=== PATIENT | female | born 1995 | race Caucasian/White ===

== ENCOUNTER 2016-09-22 20:15 | Emergency (ER) | payer OTHER ==
[2016-09-22 20:26] VITALS: BP 134/92
--- NOTE | 2016-09-22 20:35 | ER Document Report ---
ED General - General Chief Complaint: Headache Stated Complaint: BACK PAIN,HEADACHE Time Seen by Provider: 09/22/16 20:21 Notes: The patient is a 20-year-old female, delivered vaginally 2 days ago, PMHx chronic L4-L5 disc protrusion, migraines, presents with chronic lower back pain and left upper neck pain that started after she gave and her epidural was removed. She is trying ibuprofen, Lidoderm patches and took a Percocet 10 without much relief of her symptoms. She denies change in bowel or bladder, saddle anesthesia, difficulty walking, fevers, headache TRAVEL OUTSIDE OF THE [place] IN LAST 30 DAYS: No - Related Data Allergies/Adverse Reactions: No Known Allergies Allergy (Unverified 12/11/15 21:49) Past Medical History - General Information source: Patient - Social History Smoking Status: Never Smoker Family History: Reviewed & Not Pertinent Past Surgical History: Reports: Hx Tonsillectomy - Immunizations Immunizations up to date: Yes Hx Diphtheria, Pertussis, Tetanus Vaccination: Yes Review of Systems - Review of Systems Notes: REVIEW OF SYSTEMS: CONSTITUTIONAL: -fevers, -chills EENT: -eye pain, -difficulty swallowing, -nasal congestion CARDIOVASCULAR:-chest pain, -syncope. RESPIRATORY: -cough, -SOB GASTROINTESTINAL: -abdominal pain, - nausea, -vomiting, -diarrhea GENITOURINARY: -dysuria, -hematuria MUSCULOSKELETAL: +back pain, +neck pain SKIN: -rash or skin lesions. HEMATOLOGIC: -easy bruising or bleeding. LYMPHATIC: -swollen, enlarged glands. NEUROLOGICAL: -altered mental status or loss of consciousness, -headache, - neurologic symptoms PSYCHIATRIC: -anxiety, -depression. ALL OTHER SYSTEMS REVIEWED AND NEGATIVE. Physical Exam - Vital signs Vitals: Temp Pulse Resp BP Pulse Ox 98.6 F 83 18 134/92 H 97 09/22/16 20:25 09/22/16 20:25 09/22/16 20:25 09/22/16 20:25 09/22/16 20:25 - Notes Notes: PHYSICAL EXAMINATION: GENERAL: Well-appearing, well-nourished and in no acute distress. Texting on arrival. HEAD: Atraumatic, normocephalic. EYES: Pupils equal round and reactive to light, extraocular movements intact, sclera anicteric, conjunctiva are normal. ENT: nares patent, oropharynx clear without exudates. Moist mucous membranes. NECK: Mild tenderness over left upper trapezius. Normal range of motion, supple without lymphadenopathy LUNGS: Breath sounds clear to auscultation bilaterally and equal. No wheezes rales or rhonchi. HEART: Regular rate and rhythm without murmurs ABDOMEN: Soft, nontender, normoactive bowel sounds. No guarding, no rebound. No masses appreciated. EXTREMITIES: Normal range of motion, no pitting or edema. No cyanosis. Non- tender midline or paraspinal tenderness. NEUROLOGICAL: Cranial nerves grossly intact. Normal speech, normal gait. Normal sensory, motor, and reflex exams. PSYCH: Normal mood, normal affect. SKIN: Warm, Dry, normal turgor, no rashes or lesions noted. Course - Re-evaluation Re-evalutation: Patient has no red flag signs for her low back pain. Do not suspect epidural abscess or hematoma from prior epidural. She also has mild neck strain. Suspect her symptoms are from her delivery 2 days ago. Spoke to her about no indication for narcotics at this time especially with a 2-day-old at home and she is breast-feeding. She has a Lidoderm patch to take at home. Will discharge her home with follow-up with primary care physician. - Vital Signs Vital signs: Temp Pulse Resp BP Pulse Ox 98.6 F 83 18 134/92 H 97 09/22/16 20:25 09/22/16 20:25 09/22/16 20:25 09/22/16 20:25 09/22/16 20:25 Discharge - Discharge Clinical Impression: Back pain Qualifiers: Back pain location: low back pain Chronicity: acute Back pain laterality: bilateral Sciatica presence: without sciatica Qualified Code(s): M54.5 - Low back pain Strain of neck Qualifiers: Encounter type: initial encounter Qualified Code(s): S16.1XXA - Strain of muscle, fascia and tendon at neck level, initial encounter Condition: Good Disposition: HOME, SELF-CARE Additional Instructions: The only safe medication to take while breast-feeding and with a new baby are Tylenol, Motrin and using a Lidoderm patch. Follow-up with your primary care physician for referral to physical therapy to help prevent this from becoming a chronic issue. LOW BACK PAIN: Three out of every four people will have an episode of disabling back pain during their lifetime. Most commonly the pain is due to straining of the muscles and ligaments in the low back. Usual treatment includes: (1) Rest on a firm surface. Avoid lying on your stomach. (2) Ice pack the painful area. After a few days, gentle heat may be used intermittently to relax the area, or ice packs can be continued. (3) Medication may be needed -- muscle relaxers and antiinflammatory medicines are commonly used. (4) As the back improves, exercises are prescribed to strengthen the back and abdominal muscles. Your doctor will advise you on the proper care for your back at each stage in your recovery. You may be better in a few days -- or healing may take several weeks. If new symptoms of a "herniated disc" (radiation of pain, numbness, or tingling down the back of the leg or weakness in the leg) occur, you should be re-examined. Further testing may be necessary. ICE PACKS: Apply ice packs frequently against the painful area. Many different schedules are recommended, such as "20 minutes on, 20 minutes off" or "one hour ice, two hours rest." If you need to work, you may need to go longer between ice treatments. You should plan to have the area ice packed AT LEAST one fourth of the time. The ice should be applied over the wrap, tape, or splint, or over a layer of cloth -- not directly against the skin. Some ice bags have a built-in cloth and can be put directly on the skin. WARM PACKS: After approximately two days, apply gentle heat (such as a heating pad or hot water bottle) for about 20 to 30 minutes about every two hours -- at least four times daily. Warmth and elevation will help you make a more rapid recovery , and will ease the pain considerably. Do not use HOT heat, and never apply heat for longer than 30 minutes. The continuous heat can invisibly damage skin and muscles -- even when no burn is seen on the surface. Damaged muscles can make you MORE sore. FOLLOW-UP CARE: If you have been referred to a physician for follow-up care, call the physician s office for an appointment as you were instructed or within the next two days. If you experience worsening or a significant change in your symptoms, notify the physician immediately or return to the Emergency Department at any time for re-evaluation.
== END 2016-09-22 21:05 | disposition home or self-care (01) ==
LOC: ER 20:15
DX: O9A.23 Injury, poisoning and certain other consequences of external causes complicating the puerperium (principal); S16.1XXA Strain of muscle, fascia and tendon at neck level, initial encounter; M54.2 Cervicalgia; X58.XXXA Exposure to other specified factors, initial encounter; O90.89 Other complications of the puerperium, not elsewhere classified; M54.5 Low back pain
CPT/HCPCS: 99283

== ENCOUNTER 2019-09-26 10:43 | Observation (INO) | payer MEDICAID ==
[2019-09-26] MEDS ORDERED: NORMAL SALINE 1000 ML 1,630 ML IV ONE (11:01)
[2019-09-26] MEDS ORDERED: HYDROCODONE/ACETAMINOPHEN 5-325 MG TABLET PO ONE (11:02)
[2019-09-26] MEDS ORDERED: ACETAMINOPHEN 325 MG TABLET PO ONE (11:02)
[2019-09-26] MEDS ORDERED: KETOROLAC TROMETHAMINE INJ/PF 30 MG/1 ML SDV IV ONE (11:02)
[2019-09-26 11:28] LABS: ABSOLUTE LYMPHOCYTES (AUTO) 1.4 10^3/uL (0.5-4.7); ABSOLUTE MONOCYTES (AUTO) 2.1 10^3/uL (0.1-1.4); ABSOLUTE NEUT (AUTO) 15.8 10^3/uL (1.7-8.2); BASOPHILS % (AUTO) 0.1 % (0-2); EOSINOPHILS % (AUTO) 0.2 % (0-6); HEMATOCRIT 38.9 % (36.0-47.0); HEMOGLOBIN 13.3 g/dL (12.0-15.5); LYMPHOCYTES % (AUTO) 7.2 % (13-45); MEAN CORPUSCULAR HEMOGLOBIN 33.5 pg (27.0-33.4); MEAN CORPUSCULAR HGB CONC 34.3 g/dL (32.0-36.0); MEAN CORPUSCULAR VOLUME 98 fl (80-97); MONOCYTES % (AUTO) 10.8 % (3-13); PLATELET COUNT 250 10^3/uL (150-450); RED BLOOD COUNT 3.98 10^6/uL (3.72-5.28); RED CELL DISTRIBUTION WIDTH 12.4 % (11.5-14.0); SEGMENTED NEUTROPHILS % (AUTO) 81.7 % (42-78); TOTAL CELLS COUNTED % (AUTO) 100 %; WHITE BLOOD COUNT 19.3 10^3/uL (4.0-10.5)
[2019-09-26 11:31] LABS: T.VAGINALIS (WET MOUNT) NO TRICHOMONAS SEEN; YEAST (WET MOUNT) NO YEAST SEEN
[2019-09-26 11:32] LABS: BACTERIA (WET MOUNT) 3+ BACTERIA SEEN; EPITHELIALS (WET MOUNT) 3+ EPITHELIALS SEEN; RBCS (WET MOUNT) 1+ RBCS SEEN; WBCS (WET MOUNT) 2+ WBCS SEEN
[2019-09-26 11:36] LABS: PROTHROMBIN TIME 14.2 SEC (11.4-15.4)
[2019-09-26 11:38] LABS: VENOUS BLOOD BASE EXCESS 0.3 mmol/L; VENOUS BLOOD HCO3 24.3 mmol/L (20-32); VENOUS BLOOD PCO2 37.6 mmHg (35-63); VENOUS BLOOD PH 7.43 (7.30-7.42)
[2019-09-26 11:49] LABS: ALKALINE PHOSPHATASE 52 U/L (38-126); ANION GAP 6 (5-19); ASPARTATE AMINO TRANSFERASE 19 U/L (14-36); BILIRUBIN,TOTAL 0.4 mg/dL (0.2-1.3); BLOOD UREA NITROGEN 15 mg/dL (7-20); CALCIUM 9.3 mg/dL (8.4-10.2); CARBON DIOXIDE 26 mmol/L (22-30); CHLORIDE 103 mmol/L (98-107); GLUCOSE 105 mg/dL (75-110); POTASSIUM 3.7 mmol/L (3.6-5.0); TOTAL PROTEIN 6.8 g/dL (6.3-8.2)
--- NOTE | 2019-09-26 11:57 | RADIOLOGY REPORT (SQ) ---
EXAM DESCRIPTION: CHEST SINGLE VIEW IMAGES COMPLETED DATE/TIME: 09/26/2019 11:45 am REASON FOR STUDY: tachycardia, flank pain COMPARISON: None. EXAM PARAMETERS: NUMBER OF VIEWS: One view. TECHNIQUE: Single frontal radiographic view of the chest acquired. RADIATION DOSE: NA LIMITATIONS: None. FINDINGS: LUNGS AND PLEURA: No opacities, masses or pneumothorax. No pleural effusion. MEDIASTINUM AND HILAR STRUCTURES: No masses. Contour normal. HEART AND VASCULAR STRUCTURES: Heart normal in size. Normal vasculature. BONES: No acute findings. HARDWARE: None in the chest. OTHER: No other significant finding. IMPRESSION: NO ACUTE RADIOGRAPHIC FINDING IN THE CHEST. TECHNICAL DOCUMENTATION: JOB ID: [id number] 2010 [employer]- All Rights Reserved Reading location - IP/workstation name: [email or web address]
[2019-09-26] MEDS ORDERED: CEFTRIAXONE 1 GM/D5W RTU 1 GM/50 ML RTUPB IV ONE (12:00)
[2019-09-26 12:03] LABS: APPEARANCE,URINE SLIGHTLY-CLOUDY; BILIRUBIN,URINE NEGATIVE (NEGATIVE); COLOR,URINE YELLOW; GLUCOSE, URINE NEGATIVE (NEGATIVE); KETONES,URINE TRACE mg/dL (NEGATIVE); PROTEIN,URINE 30 mg/dL (NEGATIVE); URINE SPECIFIC GRAVITY 1.019; UROBILINOGEN,URINE NEGATIVE mg/dL (<2.0)
[2019-09-26 12:55] LABS: CHLAM PCR NOT DETECTED (NOT DETECT)
[2019-09-26] MEDS ORDERED: PROCHLORPERAZINE EDISYLATE INJ 10 MG/2 ML VIAL IV ONE (13:32)
[2019-09-26] MEDS ORDERED: DIPHENHYDRAMINE HCL 50 MG/ML VIAL IV ONE (13:32)
--- NOTE | 2019-09-26 14:03 | ER Document Report ---
ED GI/ - General Chief Complaint: Vaginal Discharge Stated Complaint: MUSCLE SPASMS/VAGINAL DISCHARGE Mode of Arrival: Ambulatory Information source: Patient Notes: Patient presents complaining of low back pain for the past 3 days with dysuria. Patient also complains of vaginal discharge that started yesterday with a rash to the perineum. Patient denies any fever nausea vomiting or diarrhea. Patient just traveled here 3 days ago from [place]. TRAVEL OUTSIDE OF THE [place] IN LAST 30 DAYS: No - HPI Patient complains to provider of: Dysuria, Flank pain. No: Vomiting Onset: Other - 3 days Timing/Duration: Worse Quality of pain: Achy Pain Level: 5 Location: Left flank, Right flank Menstrual period history: denies: Sexual history: Active Associated symptoms: Dysuria, Vaginal discharge. denies: Fever, Nausea, Syncope, Urinary hesitancy, Urinary frequency, Urinary retention, Vomiting Exacerbated by: Denies Relieved by: Denies Similar symptoms previously: No Recently seen / treated by doctor: No - Related Data Allergies/Adverse Reactions: No Known Allergies Allergy (Unverified 12/11/15 21:49) Past Medical History - General Information source: Patient - Social History Smoking Status: Current Every Day Smoker Chew tobacco use (# tins/day): No Frequency of alcohol use: None Occupation: None Family History: Reviewed & Not Pertinent Patient has homicidal ideation: No Psychiatric Medical History: Reports: Hx Anxiety Past Surgical History: Reports: Hx Tonsillectomy - Immunizations Immunizations up to date: Yes Hx Diphtheria, Pertussis, Tetanus Vaccination: Yes Review of Systems - Review of Systems Constitutional: No symptoms reported. denies: Fever EENT: No symptoms reported Cardiovascular: No symptoms reported. denies: Chest pain Respiratory: No symptoms reported. denies: Short of breath Gastrointestinal: No symptoms reported. denies: Abdominal pain, Nausea, Vomiting Genitourinary: Dysuria, Flank pain Female Genitourinary: Vaginal discharge, Other - Rash to perineum Musculoskeletal: No symptoms reported Skin: Rash - Perineum Hematologic/Lymphatic: No symptoms reported Neurological/Psychological: Headaches. denies: Confusion, Weakness Physical Exam - Vital signs Vitals: Temp Pulse Resp BP Pulse Ox 98.5 F 137 H 16 99/52 L 99 09/26/19 10:47 09/26/19 10:47 09/26/19 10:47 09/26/19 10:47 09/26/19 10:47 - General General appearance: Alert In distress: Moderate - HEENT Head: Normocephalic, Atraumatic Eyes: Normal Nasal: Normal Mouth/Lips: Normal Mucous membranes: Normal Neck: Normal, Supple. No: Lymphadenopathy - Respiratory Respiratory status: No respiratory distress Chest status: Nontender Breath sounds: Normal. No: Rales, Rhonchi, Stridor, Wheezing Chest palpation: Normal - Cardiovascular Rhythm: Tachycardia Heart sounds: S1 appreciated, S2 appreciated - Abdominal Inspection: Normal Distension: No distension Bowel sounds: Normal Tenderness: Nontender - Genitourinary External exam: Normal Speculum exam: Cervix closed, Vaginal discharge Vaginal bleeding: None Bimanuel exam: Normal. No: Cervical motion tender, Adnexal tenderness - Back Back: CVA tenderness - bilat - Extremities General upper extremity: Normal inspection, Normal strength General lower extremity: Normal inspection, Normal strength - Neurological Neuro grossly intact: Yes Cognition: Normal Mcdaniel Coma Scale Eye Opening: Spontaneous Mcdaniel Coma Scale Verbal: Oriented Kim Coma Scale Motor: Obeys Commands Kim Coma Scale Total: 15 - Psychological Associated symptoms: Normal affect, Normal mood - Skin Skin Temperature: Warm Skin Moisture: Dry Skin Color: Other - Patient with erythematous papulopustular rash to perineum. Rash looks consistent with folliculitis Course - Re-evaluation Re-evalutation: 09/26/19 10:59 Patient's initial heart rate has started to improve, patient complains of headache and continued low back pain. 09/26/19 13:59 Patient tachycardia improved although patient does continue with hypotension. Review of patient's previous visits demonstrates blood pressure typically ranges in the 120/80 range. Consulted with hospitalist regarding need for admission for concern about sepsis due to UTI, Dr. Villalpando agrees to admit patient to medical floor. Patient is agreeable with plan for admission at this time. - Vital Signs Vital signs: Temp Pulse Resp BP Pulse Ox 98.5 F 137 H 14 95/54 L 96 09/26/19 10:47 09/26/19 10:47 09/26/19 13:03 09/26/19 13:03 09/26/19 13:03 - Laboratory Result Diagrams: 09/26/19 11:04 09/26/19 11:04 Laboratory results interpreted by me: 09/26/19 09/26/1920 11:04 11:04 11:04 WBC 19.3 H MCV 98 H MCH 33.5 H Lymph % (Auto) 7.2 L Absolute Neuts (auto) 15.8 H Absolute Monos (auto) 2.1 H Seg Neutrophils % 81.7 H VBG pH 7.43 H Sodium 134.8 L Lactic Acid Urine Protein Urine Ketones Urine Blood Leukocyte Esterase Rfl 09/26/19 09/26/19 11:04 14:08 WBC MCV MCH Lymph % (Auto) Absolute Neuts (auto) Absolute Monos (auto) Seg Neutrophils % VBG pH Sodium Lactic Acid < 0.5 L Urine Protein 30 H Urine Ketones TRACE H Urine Blood LARGE H Leukocyte Esterase Rfl MODERATE H 09/26/19 15:45 Labs- Entire Visit 09/26/19 09/26/19 09/26/19 11:04 11:04 11:04 WBC 19.3 H RBC 3.98 Hgb 13.3 Hct 38.9 MCV 98 H MCH 33.5 H MCHC 34.3 RDW 12.4 Plt Count 250 Lymph % (Auto) 7.2 L [place] % (Auto) 10.8 Eos % (Auto) 0.2 Baso % (Auto) 0.1 Absolute Neuts (auto) 15.8 H Absolute Lymphs (auto) 1.4 Absolute Monos (auto) 2.1 H Absolute Eos (auto) 0.0 Absolute Basos (auto) 0.0 Seg Neutrophils % 81.7 H PT 14.2 INR 1.10 VBG pH VBG pCO2 VBG HCO3 VBG Base Excess Sodium 134.8 L Potassium 3.7 Chloride 103 Carbon Dioxide 26 Anion Gap 6 BUN 15 Creatinine 0.79 Est GFR ( Amer) > 60 Est GFR (MDRD) Non-Af > 60 Glucose 105 POC Glucose Lactic Acid Calcium 9.3 Total Bilirubin 0.4 Direct Bilirubin 0.0 Neonat Total Bilirubin Not Reportable Neonat Direct Bilirubin Not Reportable Neonat Indirect Bili Not Reportable AST 19 ALT 9 Alkaline Phosphatase 52 Total Protein 6.8 Albumin 4.0 Serum HCG, Qual Urine Color Urine Appearance Urine pH Ur Specific [place] Urine Protein Urine Glucose (UA) Urine Ketones Urine Blood Urine Nitrite (Reflex) Urine Bilirubin Urine Urobilinogen Leukocyte Esterase Rfl Urine RBC (Auto) Urine Bacteria (Auto) Urine WBC (Reflex) Squamous Epi Cells Auto Urine Mucus (Auto) Urine Ascorbic Acid Urine HCG, Qual Epi Cells (Wet Prep) Bacteria (Wet Prep) Trichomonas (Wet Prep) Vaginal WBC Vaginal RBC Vaginal Yeast Chlamydia DNA (PCR) N.gonorrhoeae DNA (PCR) SARS-CoV-2 (PCR) 09/26/19 09/26/19 09/26/19 11:04 11:04 11:04 WBC RBC Hgb Hct MCV MCH MCHC RDW Plt Count Lymph % (Auto) [place] % (Auto) Eos % (Auto) Baso % (Auto) Absolute Neuts (auto) Absolute Lymphs (auto) Absolute Monos (auto) Absolute Eos (auto) Absolute Basos (auto) Seg Neutrophils % PT INR VBG pH 7.43 H VBG pCO2 37.6 VBG HCO3 24.3 VBG Base Excess 0.3 Sodium Potassium Chloride Carbon Dioxide Anion Gap BUN Creatinine Est GFR ( Amer) Est GFR (MDRD) Non-Af Glucose POC Glucose Lactic Acid 1.3 Calcium Total Bilirubin Direct Bilirubin Neonat Total Bilirubin Neonat Direct Bilirubin Neonat Indirect Bili AST ALT Alkaline Phosphatase Total Protein Albumin Serum HCG, Qual Urine Color Urine Appearance Urine pH Ur Specific [place] Urine Protein Urine Glucose (UA) Urine Ketones Urine Blood Urine Nitrite (Reflex) Urine Bilirubin Urine Urobilinogen Leukocyte Esterase Rfl Urine RBC (Auto) Urine Bacteria (Auto) Urine WBC (Reflex) Squamous Epi Cells Auto Urine Mucus (Auto) Urine Ascorbic Acid Urine HCG, Qual Epi Cells (Wet Prep) 3+ EPITHELIALS SEEN Bacteria (Wet Prep) 3+ BACTERIA SEEN Trichomonas (Wet Prep) NO TRICHOMONAS SEEN Vaginal WBC 2+ WBCS SEEN Vaginal RBC 1+ RBCS SEEN Vaginal Yeast NO YEAST SEEN Chlamydia DNA (PCR) N.gonorrhoeae DNA (PCR) SARS-CoV-2 (PCR) 09/26/19 09/26/19 09/26/19 11:04 11:04 11:04 WBC RBC Hgb Hct MCV MCH MCHC RDW Plt Count Lymph % (Auto) [place] % (Auto) Eos % (Auto) Baso % (Auto) Absolute Neuts (auto) Absolute Lymphs (auto) Absolute Monos (auto) Absolute Eos (auto) Absolute Basos (auto) Seg Neutrophils % PT INR VBG pH VBG pCO2 VBG HCO3 VBG Base Excess Sodium Potassium Chloride Carbon Dioxide Anion Gap BUN Creatinine Est GFR ( Amer) Est GFR (MDRD) Non-Af Glucose POC Glucose Lactic Acid Calcium Total Bilirubin Direct Bilirubin Neonat Total Bilirubin Neonat Direct Bilirubin Neonat Indirect Bili AST ALT Alkaline Phosphatase Total Protein Albumin Serum HCG, Qual NEGATIVE Urine Color YELLOW Urine Appearance SLIGHTLY-CLOUDY Urine pH 5.0 Ur Specific [place] 1.019 Urine Protein 30 H Urine Glucose (UA) NEGATIVE Urine Ketones TRACE H Urine Blood LARGE H Urine Nitrite (Reflex) NEGATIVE Urine Bilirubin NEGATIVE Urine Urobilinogen NEGATIVE Leukocyte Esterase Rfl MODERATE H Urine RBC (Auto) 118 Urine Bacteria (Auto) TRACE Urine WBC (Reflex) 24 Squamous Epi Cells Auto 2 Urine Mucus (Auto) FEW Urine Ascorbic Acid NEGATIVE Urine HCG, Qual Epi Cells (Wet Prep) Bacteria (Wet Prep) Trichomonas (Wet Prep) Vaginal WBC Vaginal RBC Vaginal Yeast Chlamydia DNA (PCR) NOT DETECTED N.gonorrhoeae DNA (PCR) NOT DETECTED SARS-CoV-2 (PCR) 09/26/19 09/26/19 09/26/19 11:04 11:34 14:08 WBC RBC Hgb Hct MCV MCH MCHC RDW Plt Count Lymph % (Auto) [place] % (Auto) Eos % (Auto) Baso % (Auto) Absolute Neuts (auto) Absolute Lymphs (auto) Absolute Monos (auto) Absolute Eos (auto) Absolute Basos (auto) Seg Neutrophils % PT INR VBG pH VBG pCO2 VBG HCO3 VBG Base Excess Sodium Potassium Chloride Carbon Dioxide Anion Gap BUN Creatinine Est GFR ( Amer) Est GFR (MDRD) Non-Af Glucose POC Glucose 108 Lactic Acid < 0.5 L Calcium Total Bilirubin Direct Bilirubin Neonat Total Bilirubin Neonat Direct Bilirubin Neonat Indirect Bili AST ALT Alkaline Phosphatase Total Protein Albumin Serum HCG, Qual Urine Color Urine Appearance Urine pH Ur Specific [place] Urine Protein Urine Glucose (UA) Urine Ketones Urine Blood Urine Nitrite (Reflex) Urine Bilirubin Urine Urobilinogen Leukocyte Esterase Rfl Urine RBC (Auto) Urine Bacteria (Auto) Urine WBC (Reflex) Squamous Epi Cells Auto Urine Mucus (Auto) Urine Ascorbic Acid Urine HCG, Qual NEGATIVE Epi Cells (Wet Prep) Bacteria (Wet Prep) Trichomonas (Wet Prep) Vaginal WBC Vaginal RBC Vaginal Yeast Chlamydia DNA (PCR) N.gonorrhoeae DNA (PCR) SARS-CoV-2 (PCR) 09/26/19 14:08 WBC RBC Hgb Hct MCV MCH MCHC RDW Plt Count Lymph % (Auto) [place] % (Auto) Eos % (Auto) Baso % (Auto) Absolute Neuts (auto) Absolute Lymphs (auto) Absolute Monos (auto) Absolute Eos (auto) Absolute Basos (auto) Seg Neutrophils % PT INR VBG pH VBG pCO2 VBG HCO3 VBG Base Excess Sodium Potassium Chloride Carbon Dioxide Anion Gap BUN Creatinine Est GFR ( Amer) Est GFR (MDRD) Non-Af Glucose POC Glucose Lactic Acid Calcium Total Bilirubin Direct Bilirubin Neonat Total Bilirubin Neonat Direct Bilirubin Neonat Indirect Bili AST ALT Alkaline Phosphatase Total Protein Albumin Serum HCG, Qual Urine Color Urine Appearance Urine pH Ur Specific [place] Urine Protein Urine Glucose (UA) Urine Ketones Urine Blood Urine Nitrite (Reflex) Urine Bilirubin Urine Urobilinogen Leukocyte Esterase Rfl Urine RBC (Auto) Urine Bacteria (Auto) Urine WBC (Reflex) Squamous Epi Cells Auto Urine Mucus (Auto) Urine Ascorbic Acid Urine HCG, Qual Epi Cells (Wet Prep) Bacteria (Wet Prep) Trichomonas (Wet Prep) Vaginal WBC Vaginal RBC Vaginal Yeast Chlamydia DNA (PCR) N.gonorrhoeae DNA (PCR) SARS-CoV-2 (PCR) NEGATIVE Discharge - Discharge Clinical Impression: Pyelonephritis, Folliculitis Hypotension Qualifiers: Hypotension type: unspecified hypotension type Qualified Code(s): I95.9 - Hypotension, unspecified Condition: Fair Disposition: ADMITTED INPATIENT Admitting Provider: Kwasi (Hospitalist) Unit Admitted: Medical Floor
[2019-09-26] MEDS ORDERED: IPRATROPIUM/ALBUTEROL 0.5-2.5 MG/3 ML AMPUL NEB PRN (14:44)
[2019-09-26] MEDS ORDERED: ZOLPIDEM TARTRATE 5 MG TABLET PO PRN (14:44)
[2019-09-26] MEDS ORDERED: ACETAMINOPHEN 325 MG TABLET PO PRN (14:44)
[2019-09-26] MEDS ORDERED: MAGNESIUM HYDROXIDE SUSP 30 ML UDCUP PO PRN (14:44)
--- NOTE | 2019-09-26 16:30 | RADIOLOGY REPORT (SQ) ---
EXAM DESCRIPTION: CT ABD/PELVIS NO ORAL OR IV IMAGES COMPLETED DATE/TIME: 09/26/2019 4:09 pm REASON FOR STUDY: Sepsis, Pyelonephritis? COMPARISON: None. TECHNIQUE: CT scan of the abdomen and pelvis performed without intravenous or oral contrast. Images reviewed with lung, soft tissue, and bone windows. Reconstructed coronal and sagittal MPR images revi ewed. All images stored on PACS. All CT scanners at this facility use dose modulation, iterative reconstruction, and/or weight based d osing when appropriate to reduce radiation dose to as low as reasonably achievable (ALARA). [facility]: Dose Right [facility]: CareDose [facility]: Dose Right [facility]: Teradose 4D [facility]: Smart Porter + Sail RADIATION DOSE: CT Rad equipment meets quality standard of care and radiation dose reduction techniq ues were employed. CTDIvol: 4.8 mGy. DLP: 246 mGy-cm.mGy. LIMITATIONS: None. FINDINGS: LOWER CHEST: No significant findings. No nodules or infiltrates. NON-CONTRASTED LIVER, SPLEEN, ADRENALS: Evaluation limited by lack of IV contrast. No identified sign ificant masses. PANCREAS: No masses. No peripancreatic inflammatory changes. GALLBLADDER: No identified stones by CT criteria. No inflammatory changes to suggest cholecystitis. RIGHT KIDNEY AND URETER: No suspicious masses. Assessment limited by lack of IV contrast. Right eli al pelvis calculus, 10 mm in length, 1,000 Hounsfield units in density. No right-sided ureteral ston es. No hydronephrosis or hydroureter. LEFT KIDNEY AND URETER: Left pelvic kidney, best shown on coronal images 16-22, over the midline sac ral promontory. No suspicious masses. Assessment limited by lack of IV contrast. No significant ca lcifications. No hydronephrosis or hydroureter. AORTA AND RETROPERITONEUM: No aneurysm. No retroperitoneal masses or adenopathy. BOWEL AND PERITONEAL CAVITY: No obvious masses or inflammatory changes. No free fluid. APPENDIX: Normal. PELVIS, BLADDER, AND ABDOMINAL WALL:No abnormal masses. No free fluid. Bladder normal. BONES: No significant findings. OTHER: No other significant finding. IMPRESSION: 10 mm right renal pelvis intrarenal nonobstructive stone. 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
[2019-09-26] MEDS: NORMAL SALINE 1000 ML 1,000 ML IV PRN (16:54)
--- NOTE | 2019-09-26 17:58 | PDOC H&P ---
History of Present Illness Admission Date/PCP: 09/26/19 14:35 Patient complains of: Excruciating back pain associated with vaginal discharge and rash for 3 days. Denies dysuria frequency History of Present Illness: PETRA PHELAN is a 23 year old female Patient presents emergency room complains of vaginal discharge associated with back pain. She also said she had a rash. She denies any fever. She denies any nausea vomiting or dysuria. She is sexually active. She just moved here from [place] and so because of a fever it COVID 19 test was done which is negative.She had a vaginal exam done by the ED physician and gonorrhea was found to be negative as well as chlamydia. CT scan of the abdomen shows a nonobstructive stone which patient is aware of but no clear-cut evidence of pyelonephritis. Urinalysis does show large amount of blood with moderate leukocyte esterase and 24 WBCs slightly cloudy appearing urine. She was referred for admission for an acute infection possibly STD although at this point there is no clear-cut indication of that Past Medical History Medical History: None Past Surgical History Past Surgical History: Reports: Tonsillectomy Social History Information Source: Patient Smoking Status: Current Every Day Smoker Electronic Cigarette use?: No - Advance Directive Resuscitation Status: Full Code Family History Family History: Reviewed & Not Pertinent Parental Family History Reviewed: Yes Children Family History Reviewed: NA Sibling(s) Family History Reviewed.: NA Medication/Allergy Home Medications: Butalb/Acetaminophen/Caffeine [Fioricet (50-325-40 mg) Tablet] 1 tab PO Q4HP PRN #30 tab 12/11/15 Allergies/Adverse Reactions: No Known Allergies Allergy (Unverified 12/11/15 21:49) Review of Systems All systems: reviewed and no additional remarkable complaints except as stated Cardiovascular: ABSENT: chest pain, orthropnea, palpitations Respiratory: ABSENT: cough Gastrointestinal: PRESENT: abdominal pain Physical Exam Vital Signs: Temp Pulse Resp BP Pulse Ox 98.8 F 137 H 16 103/51 L 99 09/26/19 16:13 09/26/19 10:47 09/26/19 16:13 09/26/19 16:13 09/26/19 16:13 Intake & Output 09/25/19 09/26/19 09/27/19 06:59 06:59 06:59 Intake Total 1680 Balance 1680 Weight 54.431 kg General appearance: PRESENT: no acute distress, well-developed, well-nourished Head exam: PRESENT: atraumatic, normocephalic Eye exam: PRESENT: conjunctiva pink, EOMI, PERRLA. ABSENT: scleral icterus Ear exam: PRESENT: normal external ear exam Mouth exam: PRESENT: moist, tongue midline Neck exam: ABSENT: carotid bruit, JVD, lymphadenopathy, thyromegaly Respiratory exam: PRESENT: clear to auscultation marilu. ABSENT: rales, rhonchi, wheezes Cardiovascular exam: PRESENT: RRR, +S1, +S2. ABSENT: diastolic murmur, rubs, systolic murmur Pulses: PRESENT: normal dorsalis pedis pul Vascular exam: PRESENT: normal capillary refill GI/Abdominal exam: PRESENT: normal bowel sounds, soft. ABSENT: distended, guarding, mass, organolmegaly, rebound, tenderness Rectal exam: PRESENT: deferred Extremities exam: PRESENT: full ROM. ABSENT: calf tenderness, clubbing, pedal edema Neurological exam: PRESENT: alert, awake, oriented to person, oriented to place, oriented to time, oriented to situation, CN II-XII grossly intact. ABSENT: motor sensory deficit Psychiatric exam: PRESENT: appropriate affect, normal mood. ABSENT: homicidal ideation, suicidal ideation Skin exam: PRESENT: dry, intact, warm. ABSENT: cyanosis, rash Results Laboratory Results: 09/26/19 11:04 09/26/19 11:04 09/26/19 09/26/19 09/26/19 11:04 11:04 11:04 WBC 19.3 H RBC 3.98 Hgb 13.3 Hct 38.9 MCV 98 H MCH 33.5 H MCHC 34.3 RDW 12.4 Plt Count 250 Seg Neutrophils % 81.7 H VBG pH 7.43 H VBG pCO2 37.6 VBG HCO3 24.3 VBG Base Excess 0.3 Sodium 134.8 L Potassium 3.7 Chloride 103 Carbon Dioxide 26 Anion Gap 6 BUN 15 Creatinine 0.79 Est GFR ( Amer) > 60 Glucose 105 Lactic Acid Calcium 9.3 Total Bilirubin 0.4 AST 19 Alkaline Phosphatase 52 Total Protein 6.8 Albumin 4.0 Serum HCG, Qual Urine Color Urine Appearance Urine pH Ur Specific [place] Urine Protein Urine Glucose (UA) Urine Ketones Urine Blood Urine RBC (Auto) 09/26/19 09/26/19 09/26/19 11:04 11:04 11:04 WBC RBC Hgb Hct MCV MCH MCHC RDW Plt Count Seg Neutrophils % VBG pH VBG pCO2 VBG HCO3 VBG Base Excess Sodium Potassium Chloride Carbon Dioxide Anion Gap BUN Creatinine Est GFR ( Amer) Glucose Lactic Acid 1.3 Calcium Total Bilirubin AST Alkaline Phosphatase Total Protein Albumin Serum HCG, Qual NEGATIVE Urine Color YELLOW Urine Appearance SLIGHTLY-CLOUDY Urine pH 5.0 Ur Specific [place] 1.019 Urine Protein 30 H Urine Glucose (UA) NEGATIVE Urine Ketones TRACE H Urine Blood LARGE H Urine RBC (Auto) 118 09/26/19 14:08 WBC RBC Hgb Hct MCV MCH MCHC RDW Plt Count Seg Neutrophils % VBG pH VBG pCO2 VBG HCO3 VBG Base Excess Sodium Potassium Chloride Carbon Dioxide Anion Gap BUN Creatinine Est GFR ( Amer) Glucose Lactic Acid < 0.5 L Calcium Total Bilirubin AST Alkaline Phosphatase Total Protein Albumin Serum HCG, Qual Urine Color Urine Appearance Urine pH Ur Specific [place] Urine Protein Urine Glucose (UA) Urine Ketones Urine Blood Urine RBC (Auto) Impressions: Abdomen/Pelvis CT 09/26/19 00:00 IMPRESSION: 10 mm right renal pelvis intrarenal nonobstructive stone. 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 Assessment and Plan - Diagnosis (1) Sepsis Qualifiers: Sepsis type: sepsis due to unspecified organism Is this a current diagnosis for this admission?: Yes Plan: With tachycardia, fever, hypotension and leucocytosis. Possible Pyelonephritis as source infection (2) Pyelonephritis Is this a current diagnosis for this admission?: Yes Plan: CT scan reveals no definite pyelo and UA appears relatively mild. Will treat presumptively with empiric Ceftriaxone and follow up on cultures - Time Time Spent with patient: 25-34 minutes Anticipated discharge: Home Within: within 72 hours
[2019-09-26] MEDS: MORPHINE SULFATE 10 MG/ML INJ IV PRN (20:14)
[2019-09-26] MEDS ORDERED: PROMETHAZINE HCL INJ 25 MG/1 ML VIAL IV PRN (21:11)
--- NOTE | 2019-09-26 22:10 | EKG REPORT ---
SEVERITY:- OTHERWISE NORMAL ECG - SINUS TACHYCARDIA : Confirmed by: Christopher Kwan 26-Sep-2019 22:10:19
[2019-09-27] MEDS: NORMAL SALINE 1000 ML 1,000 ML IV PRN ×3 (03:51→21:37)
[2019-09-27] MEDS: BUTALB/ACETAMINOPHEN/CAFFEINE 1 TAB EACH PO PRN ×2 (03:51→21:19)
[2019-09-27] MEDS: MORPHINE SULFATE 10 MG/ML INJ IV PRN (03:58)
[2019-09-27 05:36] LABS: ABSOLUTE EOSINOPHILS # (AUTO) 0.1 10^3/uL (0.0-0.6); ABSOLUTE LYMPHOCYTES (AUTO) 2.5 10^3/uL (0.5-4.7); ABSOLUTE MONOCYTES (AUTO) 1.1 10^3/uL (0.1-1.4); ABSOLUTE NEUT (AUTO) 9.8 10^3/uL (1.7-8.2); BASOPHILS % (AUTO) 0.2 % (0-2); EOSINOPHILS % (AUTO) 0.9 % (0-6); HEMATOCRIT 29.8 % (36.0-47.0); LYMPHOCYTES % (AUTO) 18.3 % (13-45); MEAN CORPUSCULAR HEMOGLOBIN 33.3 pg (27.0-33.4); MEAN CORPUSCULAR HGB CONC 33.9 g/dL (32.0-36.0); MEAN CORPUSCULAR VOLUME 98 fl (80-97); MONOCYTES % (AUTO) 8.3 % (3-13); PLATELET COUNT 216 10^3/uL (150-450); RED BLOOD COUNT 3.04 10^6/uL (3.72-5.28); RED CELL DISTRIBUTION WIDTH 12.7 % (11.5-14.0); SEGMENTED NEUTROPHILS % (AUTO) 72.3 % (42-78); TOTAL CELLS COUNTED % (AUTO) 100 %; WHITE BLOOD COUNT 13.5 10^3/uL (4.0-10.5)
[2019-09-27 05:37] LABS: HEMOGLOBIN 10.1 g/dL (12.0-15.5)
[2019-09-27 06:00] LABS: ANION GAP 7 (5-19); BLOOD UREA NITROGEN 11 mg/dL (7-20); CALCIUM 8.1 mg/dL (8.4-10.2); CARBON DIOXIDE 20 mmol/L (22-30); CHLORIDE 107 mmol/L (98-107); GLUCOSE 76 mg/dL (75-110); POTASSIUM 3.9 mmol/L (3.6-5.0)
[2019-09-27] MEDS: OXYCODONE-ACETAMINOPHEN 5-325 MG TABLET PO PRN ×2 (08:53→21:30)
[2019-09-27] MEDS ORDERED: CEFTRIAXONE 2 GM/D5W RTU 2 GM/50 ML RTUPB IV SCH (10:00)
[2019-09-27] MEDS: DOCUSATE SODIUM 100 MG CAPSULE PO SCH (11:17)
[2019-09-27] MEDS: ENOXAPARIN SODIUM INJ 40 MG/0.4 ML DISP.SYRIN SUBCUT SCH (11:18)
--- NOTE | 2019-09-27 12:23 | PDOC PROGRESS REPORT ---
Subjective Progress Note for:: 09/27/19 Subjective:: Feels a lot better today, back pain improved Reason For Visit: SEPSIS,QUESTIONABLE PYELONEPHRITIS Physical Exam Vital Signs: Temp Pulse Resp BP Pulse Ox 98.2 F 82 16 101/47 L 96 09/27/19 07:15 09/27/19 08:21 09/27/19 08:21 09/27/19 07:15 09/27/19 08:21 Intake & Output 09/26/19 09/27/19 09/28/19 06:59 06:59 06:59 Intake Total 2880 940 Balance 2880 940 Weight 54.4 kg General appearance: PRESENT: no acute distress, well-developed, well-nourished Head exam: PRESENT: atraumatic, normocephalic Eye exam: PRESENT: conjunctiva pink, EOMI, PERRLA. ABSENT: scleral icterus Ear exam: PRESENT: normal external ear exam Mouth exam: PRESENT: moist, tongue midline Neck exam: ABSENT: carotid bruit, JVD, lymphadenopathy, thyromegaly Respiratory exam: PRESENT: clear to auscultation marilu, unlabored. ABSENT: rales, rhonchi, wheezes Cardiovascular exam: PRESENT: RRR, +S1, +S2. ABSENT: diastolic murmur, rubs, systolic murmur Pulses: PRESENT: normal dorsalis pedis pul Vascular exam: PRESENT: normal capillary refill GI/Abdominal exam: PRESENT: normal bowel sounds, soft. ABSENT: distended, guarding, mass, organolmegaly, rebound, tenderness Rectal exam: PRESENT: deferred Gentrourinary exam: PRESENT: other - no cvat Extremities exam: PRESENT: full ROM. ABSENT: calf tenderness, clubbing, pedal edema Neurological exam: PRESENT: alert, awake, oriented to person, oriented to place, oriented to time, oriented to situation, CN II-XII grossly intact. ABSENT: mot or sensory deficit Psychiatric exam: PRESENT: appropriate affect, normal mood. ABSENT: homicidal ideation, suicidal ideation Skin exam: PRESENT: dry, intact, warm. ABSENT: cyanosis, rash Results Laboratory Results: 09/27/19 04:46 09/27/19 04:46 09/26/19 09/26/19 09/27/19 14:08 17:30 04:46 WBC 13.5 H RBC 3.04 L Hgb 10.1 L D Hct 29.8 L MCV 98 H MCH 33.3 MCHC 33.9 RDW 12.7 Plt Count 216 Seg Neutrophils % 72.3 Sodium Potassium Chloride Carbon Dioxide Anion Gap BUN Creatinine Est GFR ( Amer) Glucose Lactic Acid < 0.5 L 0.7 Calcium 09/27/19 04:46 WBC RBC Hgb Hct MCV MCH MCHC RDW Plt Count Seg Neutrophils % Sodium 133.7 L Potassium 3.9 Chloride 107 Carbon Dioxide 20 L Anion Gap 7 BUN 11 Creatinine 0.66 Est GFR ( Amer) > 60 Glucose 76 Lactic Acid Calcium 8.1 L Impressions: Abdomen/Pelvis CT 09/26/19 00:00 IMPRESSION: 10 mm right renal pelvis intrarenal nonobstructive stone. 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 Assessment and Plan - Diagnosis (1) Sepsis Qualifiers: Sepsis type: sepsis due to unspecified organism Is this a current diagnosis for this admission?: Yes (2) Pyelonephritis Is this a current diagnosis for this admission?: Yes (3) Anemia Qualifiers: Anemia type: unspecified type Qualified Code(s): D64.9 - Anemia, unspecified Is this a current diagnosis for this admission?: Yes Plan: Likely combination of nutritional and hemodilution. Will check iron studies - Plan Summary Summary: Etiology of patient's sepsis is still not clear. I really suspect that she has something that may be a PID or STD however all the cultures including gonorrhea as well as chlamydia negative. She is on ceftriaxone and she has improved on this. CT scan of the abdomen shows a nonocclusive stone urine cultures are pending. I will continue with IV antibiotics, recheck labs and if she is improved she can likely be discharged home in a.m. - Time Time Spent with patient: 15-24 minutes Medications reviewed and adjusted accordingly: Yes Anticipated discharge: Home Within: within 24 hours
[2019-09-28 05:32] LABS: ABSOLUTE EOSINOPHILS # (AUTO) 0.3 10^3/uL (0.0-0.6); ABSOLUTE LYMPHOCYTES (AUTO) 3.1 10^3/uL (0.5-4.7); ABSOLUTE MONOCYTES (AUTO) 0.7 10^3/uL (0.1-1.4); ABSOLUTE NEUT (AUTO) 4.5 10^3/uL (1.7-8.2); ABSOLUTE RETICS # 0.023 10^6/uL (0.028-0.122); BASOPHILS % (AUTO) 0.2 % (0-2); HEMATOCRIT 32.8 % (36.0-47.0); HEMOGLOBIN 11.4 g/dL (12.0-15.5); LYMPHOCYTES % (AUTO) 35.3 % (13-45); MEAN CORPUSCULAR HEMOGLOBIN 33.7 pg (27.0-33.4); MEAN CORPUSCULAR HGB CONC 34.7 g/dL (32.0-36.0); MEAN CORPUSCULAR VOLUME 97 fl (80-97); MONOCYTES % (AUTO) 8.5 % (3-13); PLATELET COUNT 217 10^3/uL (150-450); RED BLOOD COUNT 3.38 10^6/uL (3.72-5.28); RED CELL DISTRIBUTION WIDTH 12.5 % (11.5-14.0); RETICULOCYTE COUNT (AUTO) 0.67 % (0.66-2.85); TOTAL CELLS COUNTED % (AUTO) 100 %; WHITE BLOOD COUNT 8.7 10^3/uL (4.0-10.5)
[2019-09-28 06:55] LABS: FOLATE 8.21 ng/mL (>2.76)
[2019-09-28] MEDS ORDERED: FERROUS SULFATE 325 MG TABLET PO SCH (10:00)
[2019-09-28] MEDS ORDERED: LIDOCAINE 2% JELLY 5 ML TUBE TOP PRN (10:24)
[2019-09-28] MEDS ORDERED: OXYCODONE-ACETAMINOPHEN 5-325 MG TABLET PO PRN (10:25)
[2019-09-28] MEDS ORDERED: VALACYCLOVIR HCL 500 MG TABLET PO SCH (11:00)
[2019-09-28 12:06] VITALS: BP 116/58
[2019-09-28] MEDS: DOCUSATE SODIUM 100 MG CAPSULE PO SCH (12:23)
[2019-09-28] MEDS: ENOXAPARIN SODIUM INJ 40 MG/0.4 ML DISP.SYRIN SUBCUT SCH (12:24)
--- NOTE | 2019-09-28 18:59 | PDOC DISCHARGE SUMMARY ---
Impression - Admit/DC Date/PCP Admission Date/Primary Care Provider: 09/26/19 14:35 Discharge Date: 09/28/19 - Discharge Diagnosis (1) Primary herpetic vulvovaginitis Is this a current diagnosis for this admission?: Yes (2) Anemia Is this a current diagnosis for this admission?: Yes (3) Pyelonephritis Is this a current diagnosis for this admission?: Yes (4) Sepsis Is this a current diagnosis for this admission?: Yes - Additional Information Resuscitation Status: Full Code Discharge Diet: As Tolerated, Regular Discharge Activity: Activity As Tolerated, Balance Activity w/Rest Referrals: PRIMARY,CARE PROVIDER [Other] (PATIENT TO MAKE OWN APPT.) Prescriptions: Ciprofloxacin HCl [Cipro 500 mg Tablet] 500 mg PO BID #10 tablet Docusate Sodium [Colace 100 mg Capsule] 100 mg PO DAILY #30 capsule Ferrous Sulfate [Feosol 325 mg Tablet] 325 mg PO BIDPCBS #60 tablet Oxycodone HCl/Acetaminophen [Percocet 5-325 mg Tablet] 1 tab PO Q6HP PRN #20 tablet PRN Reason: Valacyclovir HCl [Valtrex 500 mg Tablet] 1,000 mg PO Q12 #40 tablet Lidocaine HCl [Xylocaine 2% Jelly 5 ml Tube] 5 ml TOP Q6HP PRN #1 jel PRN Reason: Home Medications: Escitalopram Oxalate [Lexapro 10 mg Tablet] 5 mg PO DAILY 09/27/19 Norethindrone-E.estradiol-Iron [Junel Fe 1.5 mg-30 Mcg Tablet] 1 each PO DAILY 09/27/19 Acetaminophen [Tylenol 325 mg Tablet] 650 mg PO Q4HP PRN tablet 09/28/19 Ciprofloxacin HCl [Cipro 500 mg Tablet] 500 mg PO BID #10 tablet 09/28/19 Docusate Sodium [Colace 100 mg Capsule] 100 mg PO DAILY #30 capsule 09/28/19 Ferrous Sulfate [Feosol 325 mg Tablet] 325 mg PO BIDPCBS #60 tablet 09/28/19 Lidocaine HCl [Xylocaine 2% Jelly 5 ml Tube] 5 ml TOP Q6HP PRN #1 jel 09/28/19 Oxycodone HCl/Acetaminophen [Percocet 5-325 mg Tablet] 1 tab PO Q6HP PRN #20 tablet 09/28/19 Valacyclovir HCl [Valtrex 500 mg Tablet] 1,000 mg PO Q12 #40 tablet 09/28/19 History of Present Illiness History of Present Illness: Per H&P by Dr. Villalpando: PETRA PHELAN is a 23 year old female Patient presents emergency room complains of vaginal discharge associated with back pain. She also said she had a rash. She denies any fever. She denies any nausea vomiting or dysuria. She is sexually active. She just moved here from [place] and so because of a fever it COVID 19 test was done which is negative.She had a vaginal exam done by the ED physician and gonorrhea was found to be negative as well as chlamydia. CT scan of the abdomen shows a nonobstructive stone which patient is aware of but no clear-cut evidence of pyelonephritis. Urinalysis does show large amount of blood with moderate leukocyte esterase and 24 WBCs slightly cloudy appearing urine. She was referred for admission for an acute infection possibly STD although at this point there is no clear-cut indication of that Hospital Course Hospital Course: She was admitted to the medical floor and provided generous IV fluids with subsequent resolution of her tachycardia and hypotension. She was empirically placed on IV ceftriaxone for treatment of UTI with concern for developing pyelonephritis given the patient's flank pain; leukocytosis resolved, and she has been afebrile greater than 48 hours. On day of discharge, her primary complaint was worsening perineal rash, now with intense vaginal discomfort. She agrees to visual inspection and is found to have numerous, scattered, <0.5 cm shallow ulcerations with erythematous border that are intensely painful; primarily clustered to mucosal surfaces. High suspicion for primary herpes outbreak. The patient's vaginal herpes culture is pending; discussed with lab, will add in serum HSV 1 and 2 PCR typing. At time of discharge, both Herpes culture and PCR testing are pending. In addition to vaginal/perineum discomfort; she admits to continued decreased appetite with mild nausea. Otherwise, she reports she is feeling significantly better and requests to d/c to home. She is advised of the importance of completing her full course of Valtrex. She is also advised to complete course of Cipro as there was some concern that the patient's sepsis was a result of pyelonephritis. She is prescribed lidocaine jelly, Percocet, and a agueda-bottle to use during voids. She is discharged home in stable condition. She is advised follow-up with her primary care provider within 1 week. She is also encouraged to establish with [facility] for further follow-up. She is instructed to return to the emergency department as needed for concerning symptoms. Physical Exam Vital Signs: Temp Pulse Resp BP Pulse Ox 98.1 F 64 16 116/58 L 97 09/28/19 12:05 09/28/19 12:05 09/28/19 12:05 09/28/19 12:05 09/28/19 12:05 Intake & Output 09/27/19 09/28/19 09/29/19 06:59 06:59 06:59 Intake Total 2880 2840 118 Balance 2880 2840 118 Weight 54.4 kg 57.2 kg General appearance: PRESENT: no acute distress, well-developed, well-nourished Head exam: PRESENT: atraumatic, normocephalic Eye exam: PRESENT: conjunctiva pink, EOMI, PERRLA. ABSENT: scleral icterus Mouth exam: PRESENT: moist, tongue midline Neck exam: ABSENT: carotid bruit, JVD, lymphadenopathy, thyromegaly Respiratory exam: PRESENT: clear to auscultation marilu, symmetrical, unlabored. ABSENT: rales, rhonchi, wheezes Cardiovascular exam: PRESENT: RRR. ABSENT: diastolic murmur, rubs, systolic murmur Pulses: PRESENT: normal dorsalis pedis pul Vascular exam: PRESENT: normal capillary refill GI/Abdominal exam: PRESENT: normal bowel sounds, soft. ABSENT: distended, guarding, mass, organolmegaly, rebound, tenderness Gentrourinary exam: PRESENT: other - External visual inspection showed numerous, scattered, <0.5 cm round, shallow, ulcerations, with erythematous border primarily in clusters to mucosal surfaces. Extremities exam: PRESENT: full ROM. ABSENT: calf tenderness, clubbing, pedal edema Musculoskeletal exam: PRESENT: ambulatory Neurological exam: PRESENT: alert, awake, oriented to person, oriented to place, oriented to time, oriented to situation, CN II-XII grossly intact. ABSENT: motor sensory deficit Psychiatric exam: PRESENT: appropriate affect, normal mood. ABSENT: homicidal ideation, suicidal ideation Skin exam: PRESENT: dry, intact, warm. ABSENT: cyanosis, rash Results Laboratory Results: WBC 8.7 10^3/uL (4.0-10.5) 09/28/19 05:15 RBC 3.38 10^6/uL (3.72-5.28) L 09/28/19 05:15 Hgb 11.4 g/dL (12.0-15.5) L 09/28/19 05:15 Hct 32.8 % (36.0-47.0) L 09/28/19 05:15 MCV 97 fl (80-97) 09/28/19 05:15 MCH 33.7 pg (27.0-33.4) H 09/28/19 05:15 MCHC 34.7 g/dL (32.0-36.0) 09/28/19 05:15 RDW 12.5 % (11.5-14.0) 09/28/19 05:15 Plt Count 217 10^3/uL (150-450) 09/28/19 05:15 Lymph % (Auto) 35.3 % (13-45) 09/28/19 05:15 [place] % (Auto) 8.5 % (3-13) 09/28/19 05:15 Eos % (Auto) 4.0 % (0-6) 09/28/19 05:15 Baso % (Auto) 0.2 % (0-2) 09/28/19 05:15 Reticulocyte # 0.023 10^6/uL (0.028-0.122) L 09/28/19 05:15 Absolute Neuts (auto) 4.5 10^3/uL (1.7-8.2) 09/28/19 05:15 Absolute Lymphs (auto) 3.1 10^3/uL (0.5-4.7) 09/28/19 05:15 Absolute Monos (auto) 0.7 10^3/uL (0.1-1.4) 09/28/19 05:15 Absolute Eos (auto) 0.3 10^3/uL (0.0-0.6) 09/28/19 05:15 Absolute Basos (auto) 0.0 10^3/uL (0.0-0.2) 09/28/19 05:15 Seg Neutrophils % 52.0 % (42-78) 09/28/19 05:15 Retic Count (auto) 0.67 % (0.66-2.85) 09/28/19 05:15 PT 14.2 SEC (11.4-15.4) 09/26/19 11:04 INR 1.10 09/26/19 11:04 VBG pH 7.43 (7.30-7.42) H 09/26/19 11:04 VBG pCO2 37.6 mmHg (35-63) 09/26/19 11:04 VBG HCO3 24.3 mmol/L (20-32) 09/26/19 11:04 VBG Base Excess 0.3 mmol/L 09/26/19 11:04 Sodium 133.7 mmol/L (137-145) L 09/27/19 04:46 Potassium 3.9 mmol/L (3.6-5.0) 09/27/19 04:46 Chloride 107 mmol/L (98-107) 09/27/19 04:46 Carbon Dioxide 20 mmol/L (22-30) L 09/27/19 04:46 Anion Gap 7 (5-19) 09/27/19 04:46 BUN 11 mg/dL (7-20) 09/27/19 04:46 Creatinine 0.66 mg/dL (0.52-1.25) 09/27/19 04:46 Est GFR ( Amer) > 60 (>60) 09/27/19 04:46 Est GFR (MDRD) Non-Af > 60 (>60) 09/27/19 04:46 Glucose 76 mg/dL (75-110) 09/27/19 04:46 POC Glucose 108 mg/dL (70-110) 09/26/19 11:34 Lactic Acid 0.7 mmol/L (0.7-2.1) 09/26/19 17:30 Calcium 8.1 mg/dL (8.4-10.2) L 09/27/19 04:46 Iron 24.0 ug/dL (37-170) L 09/28/19 05:15 TIBC 227 ug/dL (250-450) L 09/28/19 05:15 % Saturation 11 % 09/28/19 05:15 Transferrin 154.99 mg/dL (206.00-381.00) L 09/28/19 05:15 Ferritin 79.70 ng/mL (6.2-137.0) 09/28/19 05:15 Total Bilirubin 0.4 mg/dL (0.2-1.3) 09/26/19 11:04 Direct Bilirubin 0.0 mg/dL (0.0-0.4) 09/26/19 11:04 Neonat Total Bilirubin Not Reportable 09/26/19 11:04 Neonat Direct Bilirubin Not Reportable 09/26/19 11:04 Neonat Indirect Bili Not Reportable 09/26/19 11:04 AST 19 U/L (14-36) 09/26/19 11:04 ALT 9 U/L (<35) 09/26/19 11:04 Alkaline Phosphatase 52 U/L (38-126) 09/26/19 11:04 Total Protein 6.8 g/dL (6.3-8.2) 09/26/19 11:04 Albumin 4.0 g/dL (3.5-5.0) 09/26/19 11:04 Vitamin B12 363.0 pg/mL (239-931) 09/28/19 05:15 Folate 8.21 ng/mL (>2.76) 09/28/19 05:15 Serum HCG, Qual NEGATIVE (NEGATIVE) 09/26/19 11:04 Urine Color YELLOW 09/26/19 11:04 Urine Appearance SLIGHTLY-CLOUDY 09/26/19 11:04 Urine pH 5.0 (5.0-9.0) 09/26/19 11:04 Ur Specific [place] 1.019 09/26/19 11:04 Urine Protein 30 mg/dL (NEGATIVE) H 09/26/19 11:04 Urine Glucose (UA) NEGATIVE mg/dL (NEGATIVE) 09/26/19 11:04 Urine Ketones TRACE mg/dL (NEGATIVE) H 09/26/19 11:04 Urine Blood LARGE (NEGATIVE) H 09/26/19 11:04 Urine Nitrite (Reflex) NEGATIVE (NEGATIVE) 09/26/19 11:04 Urine Bilirubin NEGATIVE (NEGATIVE) 09/26/19 11:04 Urine Urobilinogen NEGATIVE mg/dL (<2.0) 09/26/19 11:04 Leukocyte Esterase Rfl MODERATE (NEGATIVE) H 09/26/19 11:04 Urine RBC (Auto) 118 /HPF 09/26/19 11:04 Urine Bacteria (Auto) TRACE /HPF 09/26/19 11:04 Urine WBC (Reflex) 24 /HPF 09/26/19 11:04 Squamous Epi Cells Auto 2 /HPF 09/26/19 11:04 Urine Mucus (Auto) FEW /LPF 09/26/19 11:04 Urine Ascorbic Acid NEGATIVE (NEGATIVE) 09/26/19 11:04 Urine HCG, Qual NEGATIVE (NEGATIVE) 09/26/19 11:04 Epi Cells (Wet Prep) 3+ EPITHELIALS SEEN 09/26/19 11:04 Bacteria (Wet Prep) 3+ BACTERIA SEEN 09/26/19 11:04 Trichomonas (Wet Prep) NO TRICHOMONAS SEEN 09/26/19 11:04 Vaginal WBC 2+ WBCS SEEN 09/26/19 11:04 Vaginal RBC 1+ RBCS SEEN 09/26/19 11:04 Vaginal Yeast NO YEAST SEEN 09/26/19 11:04 Chlamydia DNA (PCR) NOT DETECTED (NOT DETECT) 09/26/19 11:04 COVID-19 Source Cancelled 09/26/19 14:08 COVID-19 (GIA) Cancelled 09/26/19 14:08 N.gonorrhoeae DNA (PCR) NOT DETECTED (NOT DETECT) 09/26/19 11:04 SARS-CoV-2 (PCR) NEGATIVE (NEGATIVE) 09/26/19 14:08 Impressions: Abdomen/Pelvis CT 09/26/19 00:00 IMPRESSION: 10 mm right renal pelvis intrarenal nonobstructive stone. 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 Plan Plan of Treatment: Patient is discharged home in stable condition. She is advised to follow-up with her primary care provider within 1 week. She is also encouraged to establish with a [facility]; follow-up in 2 to 4 weeks or sooner as needed. She is instructed to complete both her Cipro and Valtrex prescriptions. Take other medications as prescribed. Utilize sitz bottle for comfort during voids. Return to the emergency department as needed for concerning symptoms. Time Spent: Greater than 30 Minutes Stroke Is this a Stroke Patient?: No Acute Heart Failure - Is this a Heart Failure Patient?: No
[2019-09-29] MEDS ORDERED: ESCITALOPRAM OXALATE 10 MG TABLET PO SCH (10:00)
[2019-09-29] MEDS ORDERED: NORETHINDRONE E ESTRADIOL IRON PO SCH (10:00)
== END 2019-09-28 13:13 | disposition home or self-care (01) ==
LOC: ER 10:43 → EH 14:35 → INTOOBSV 14:35 → 4N 19:59
PROVIDERS: ADMIT Hospitalist; ATTEND Registered Nurse
DX: N12 Tubulo-interstitial nephritis, not specified as acute or chronic (principal); A60.04 Herpesviral vulvovaginitis; A41.9 Sepsis, unspecified organism; D64.9 Anemia, unspecified; F17.200 Nicotine dependence, unspecified, uncomplicated; R51 Headache; M54.5 Low back pain; R63.0 Anorexia; R10.9 Unspecified abdominal pain; Z20.828 Contact with and (suspected) exposure to other viral communicable diseases
CPT/HCPCS: 93005; 99285; 96361; 96375; 96365; 87529; 36415 ×3; 87040; 87086; 87210; 82962; 82607; 82728; 82746; 83540; 83550; 83605; 84703; 85025 ×3; 85610; 87635; 81025; 85045; 80048; 80053; 81001; 87250; 87491; 87591; 82803; 84466; 71045; 74176; 93010; J3490; J1200; J1885; J2270 ×2; J1650; J0780; J7030 ×2; J0696 ×2; G0378